=== PATIENT | male | born 1950 | race Caucasian/White ===

== ENCOUNTER 2017-10-13 12:55 | Day surgery (SDC) | payer BC ==
[2017-10-13] MEDS ORDERED: PROPOFOL 20 ML (14:31)
[2017-10-13] MEDS ORDERED: FENTAnyl 50 MCG/ML VIAL (14:31)
== END 2017-10-13 16:18 | disposition home or self-care (01) ==
LOC: GIL 12:55
DX: K29.50 Unspecified chronic gastritis without bleeding (principal); I85.00 Esophageal varices without bleeding; K22.10 Ulcer of esophagus without bleeding; K76.6 Portal hypertension; K31.89 Other diseases of stomach and duodenum; J45.909 Unspecified asthma, uncomplicated; I10 Essential (primary) hypertension; Z85.038 Personal history of other malignant neoplasm of large intestine; Z87.891 Personal history of nicotine dependence
CPT/HCPCS: 43239; 88305; 88312

== ENCOUNTER 2017-10-20 10:58 | Outpatient (CLI) | payer BC | END 2017-10-20 15:56 | disposition home or self-care (01) | LOC: HPC 10:58 | DX: C18.9 Malignant neoplasm of colon, unspecified (principal); K62.5 Hemorrhage of anus and rectum; B19.20 Unspecified viral hepatitis C without hepatic coma; I10 Essential (primary) hypertension; J45.909 Unspecified asthma, uncomplicated; M19.90 Unspecified osteoarthritis, unspecified site; Z72.89 Other problems related to lifestyle; I87.2 Venous insufficiency (chronic) (peripheral); I34.0 Nonrheumatic mitral (valve) insufficiency; I45.10 Unspecified right bundle-branch block; I36.1 Nonrheumatic tricuspid (valve) insufficiency; Q53.9 Undescended testicle, unspecified; Z87.891 Personal history of nicotine dependence; Z88.0 Allergy status to penicillin; Z88.2 Allergy status to sulfonamides | CPT/HCPCS: Z7500 ==

== ENCOUNTER 2017-11-26 03:16 | Emergency (ER) | payer BC ==
[2017-11-26] MEDS: LIDOCAINE 1% (MDV) 20 ML INJ SC (06:30)
== END 2017-11-26 08:11 | disposition home or self-care (01) ==
LOC: FTE 03:16
DX: S91.201A Unspecified open wound of right great toe with damage to nail, initial encounter (principal); J45.909 Unspecified asthma, uncomplicated; I10 Essential (primary) hypertension; W01.0XXA Fall on same level from slipping, tripping and stumbling without subsequent striking against object, initial encounter; Y92.9 Unspecified place or not applicable; Z87.891 Personal history of nicotine dependence
CPT/HCPCS: 11730; 99283-25

== ENCOUNTER 2018-01-21 08:19 | Inpatient (IN) | payer BC ==
[2018-01-21] MEDS: LACTATED RINGER'S 1,000 ML IV* (06:00)
[~2018-01-21 08:19] MED LIST: ONDANSETRON 4 MG INJ; ROCURONIUM 50 MG INJ; hydrALAzine 20 MG INJ
[2018-01-21] MEDS ORDERED: FENTAnyl 50 MCG/ML VIAL (10:53)
[2018-01-21] MEDS ORDERED: MIDAZOLAM 1 MG/ML 2 ML INJ (10:54)
[2018-01-21] MEDS ORDERED: LIDOCAINE 2% (SDV) 5 ML INJ (11:21)
[2018-01-21] MEDS ORDERED: ROCURONIUM 50 MG INJ (11:21)
[2018-01-21] MEDS ORDERED: SUCCINYLCHOLINE CHLORIDE 100 MG/5 ML SYG IV (11:21)
[2018-01-21] MEDS ORDERED: PROPOFOL 20 ML (11:21)
[2018-01-21] MEDS ORDERED: CIPROFLOXACIN 400MG/D5W 200 ML (11:41)
[2018-01-21] MEDS ORDERED: metroNIDAZOLE 500 MG/NS (PMX) 100 ML IVPB (11:41)
[2018-01-21] MEDS ORDERED: METOCLOPRAMIDE 10 MG INJ (11:44)
[2018-01-21] MEDS ORDERED: DEXAMETHASONE 4 MG/ML 1 ML INJ (11:45)
[2018-01-21 12:30] LABS: IMMEDIATE SPIN CROSSMATCH 1 2
[2018-01-21] MEDS ORDERED: HYDROmorphONE 2 MG/ML SYG (14:37)
[2018-01-21] MEDS: metroNIDAZOLE 500 MG/NS (PMX) 100 ML IVPB ×2 (14:45→23:49)
[2018-01-21] MEDS ORDERED: SUGAMMADEX SODIUM 200 MG/2 ML VIAL IV ×3 (16:21→18:57)
[2018-01-21] MEDS ORDERED: NALOXONE (0.4 MG/ML) INJ IV (16:30)
[2018-01-21] MEDS ORDERED: KETOROLAC 15 MG INJ IV (16:30)
[2018-01-21] MEDS ORDERED: ONDANSETRON 4 MG INJ IV ×2 (16:30→17:00)
[2018-01-21 16:51] LABS: ADD MAN DIFF? NO
[2018-01-21 16:52] LABS: WHITE BLOOD COUNT 6.3 10^3/ul (4.8-10.8)
[2018-01-21 16:52] LABS: ABNORMAL IP MESSAGE 1; BASOPHILS % 0.3 % (0.0-2.0); EOSINOPHILS % 0.2 % (0.0-7.0); HEMATOCRIT 29.3 % (42.0-52.0); HEMOGLOBIN 9.5 g/dl (14.0-18.0); LYMPHOCYTES # 0.6 10^3/ul (0.8-2.9); LYMPHOCYTES % 9.2 % (15.0-51.0); MEAN CORPUSCULAR HEMOGLOBIN 21.9 pg (29.0-33.0); MEAN CORPUSCULAR HGB CONC 32.4 g/dl (32.0-37.0); MEAN CORPUSCULAR VOLUME 67.5 fl (82.0-101.0); MEAN PLATELET VOLUME 8.7 fl (7.4-10.4); MONOCYTE # 0.3 10^3/ul (0.3-0.9); NEUTROPHIL # 5.4 10^3/ul (1.6-7.5); PLATELET COUNT 196 10^3/UL (140-415); POSITIVE DIFF @See below; RED BLOOD COUNT 4.34 10^6/ul (4.70-6.10); RED CELL DISTRIBUTION WIDTH 19.9 % (11.5-14.5)
[2018-01-21 16:58] LABS: HOLD TRANSMISSIONS 1
[2018-01-21] MEDS ORDERED: IPRATROPIUM (NEB) 0.5 MG/2.5 ML AMP HHN (17:00)
[2018-01-21] MEDS ORDERED: hydrALAzine 20 MG INJ IV (17:00)
[2018-01-21] MEDS ORDERED: HYDROmorphONE (0.2 MG/ML) 10ML SYG IV ×2 (17:00)
[2018-01-21] MEDS ORDERED: METOCLOPRAMIDE 10 MG INJ IV (17:00)
[2018-01-21] MEDS ORDERED: DIPHENHYDRAMINE 50 MG INJ IV (17:00)
[2018-01-21] MEDS ORDERED: LABETALOL HCL 20MG INJ IV (17:00)
[2018-01-21] MEDS ORDERED: FENTAnyl 50 MCG/ML VIAL IV ×2 (17:00)
[2018-01-21] MEDS: HYDROmorphONE 0.2 MG/ML PCA IV (17:16)
[2018-01-21 17:22] LABS: PARTIAL THROMBOPLASTIN TIME 38.3 Sec (25.0-35.0)
[2018-01-21] MEDS: D5W-0.45 NACL + KCL 20 MEQ 1,000 ML IV (17:31)
[2018-01-21 17:34] LABS: ANION GAP 14 (8-16); CARBON DIOXIDE 22 mmol/L (21-31); CHLORIDE 107 mmol/L (97-110); GLUCOSE 136 mg/dl (70-220); SODIUM 139 mmol/L (135-144)
[2018-01-21 17:35] LABS: BLOOD UREA NITROGEN 8 mg/dl (7-20); CALCIUM 9.3 mg/dl (8.4-10.2); CREATININE 0.64 mg/dl (0.61-1.24); POTASSIUM 3.6 mmol/L (3.5-5.1)
[2018-01-21] MEDS: CIPROFLOXACIN 400MG/D5W 200 ML IVPB (21:59)
[2018-01-22] MEDS: metroNIDAZOLE 500 MG/NS (PMX) 100 ML IVPB ×2 (05:43→13:32)
[2018-01-22] MEDS: PANTOPRAZOLE 40 MG INJ IV (05:43)
[2018-01-22] MEDS: D5W-0.45 NACL + KCL 20 MEQ 1,000 ML IV ×2 (05:49→10:09)
[2018-01-22 08:32] LABS: ADD MAN DIFF? NO
[2018-01-22 08:47] LABS: BASOPHILS % 0.2 % (0.0-2.0); EOSINOPHILS % 0.2 % (0.0-7.0); HEMATOCRIT 26.6 % (42.0-52.0); HEMOGLOBIN 8.5 g/dl (14.0-18.0); LYMPHOCYTES % 17.8 % (15.0-51.0); MEAN CORPUSCULAR HEMOGLOBIN 21.5 pg (29.0-33.0); MEAN CORPUSCULAR VOLUME 67.2 fl (82.0-101.0); MEAN PLATELET VOLUME 9.6 fl (7.4-10.4); MONOCYTE # 0.5 10^3/ul (0.3-0.9); MONOCYTES % 8.6 % (0.0-11.0); NEUTROPHIL # 3.9 10^3/ul (1.6-7.5); PLATELET COUNT 185 10^3/UL (140-415); RED BLOOD COUNT 3.96 10^6/ul (4.70-6.10); RED CELL DISTRIBUTION WIDTH 19.4 % (11.5-14.5)
[2018-01-22 08:47] LABS: WHITE BLOOD COUNT 5.4 10^3/ul (4.8-10.8)
[2018-01-22] MEDS: ENOXAPARIN 40 MG/0.4 ML SYG SC (08:51)
[2018-01-22 08:54] LABS: ALANINE AMINOTRANSFERASE 30 IU/L (13-69); ALBUMIN 2.8 g/dl (3.3-4.9); ALBUMIN/GLOBULIN RATIO 0.84; ALKALINE PHOSPHATASE 79 IU/L (42-121); ANION GAP 14 (8-16); ASPARTATE AMINO TRANSFERASE 39 IU/L (15-46); BILIRUBIN,INDIRECT 0.3 mg/dl (0-1.1); BILIRUBIN,TOTAL 0.3 mg/dl (0.2-1.3); BLOOD UREA NITROGEN 6 mg/dl (7-20); CALCIUM 8.5 mg/dl (8.4-10.2); CARBON DIOXIDE 24 mmol/L (21-31); CHLORIDE 108 mmol/L (97-110); CREATININE 0.58 mg/dl (0.61-1.24); GLUCOSE 103 mg/dl (70-220); POTASSIUM 4.1 mmol/L (3.5-5.1); SODIUM 142 mmol/L (135-144); TOTAL PROTEIN 6.1 g/dl (6.1-8.1)
[2018-01-22 08:56] LABS: INR 1.22; PROTIME 15.6 Sec (11.9-14.9); PT RATIO 1.2
[2018-01-22 08:57] LABS: PARTIAL THROMBOPLASTIN TIME 33.7 Sec (25.0-35.0)
[2018-01-22 09:21] LABS: IRON 25 ug/dl (35-150)
[2018-01-22 09:30] LABS: % IRON SATURATION 8 % SAT (22-52); TOTAL IRON BINDING CAPACITY 309 ug/dl (241-421)
[2018-01-22 09:32] LABS: FERRITIN 8.2 ng/ml (11.1-264.0)
[2018-01-22] MEDS: CIPROFLOXACIN 400MG/D5W 200 ML IVPB (10:55)
[2018-01-22] MEDS: FERROUS SULFATE (EC) 325 MG TAB PO (20:36)
[2018-01-23] MEDS: HYDROmorphONE 0.2 MG/ML PCA IV (00:38)
[2018-01-23] MEDS: PANTOPRAZOLE 40 MG INJ IV (05:31)
[2018-01-23] MEDS: D5W-0.45 NACL + KCL 20 MEQ 1,000 ML IV (05:33)
[2018-01-23] MEDS: ENOXAPARIN 40 MG/0.4 ML SYG SC (06:10)
[2018-01-23 08:53] LABS: ADD MAN DIFF? NO
[2018-01-23 09:06] LABS: BASOPHILS % 0.4 % (0.0-2.0); EOSINOPHILS # 0.1 10^3/ul (0.0-0.5); HEMATOCRIT 27.2 % (42.0-52.0); HEMOGLOBIN 8.6 g/dl (14.0-18.0); LYMPHOCYTES # 0.9 10^3/ul (0.8-2.9); LYMPHOCYTES % 19.3 % (15.0-51.0); MEAN CORPUSCULAR HEMOGLOBIN 21.3 pg (29.0-33.0); MEAN CORPUSCULAR HGB CONC 31.6 g/dl (32.0-37.0); MEAN CORPUSCULAR VOLUME 67.3 fl (82.0-101.0); MEAN PLATELET VOLUME 9.8 fl (7.4-10.4); MONOCYTE # 0.4 10^3/ul (0.3-0.9); MONOCYTES % 9.1 % (0.0-11.0); NEUTROPHIL # 3.3 10^3/ul (1.6-7.5); NEUTROPHILS % 69.2 % (39.0-77.0); PLATELET COUNT 171 10^3/UL (140-415); RED BLOOD COUNT 4.04 10^6/ul (4.70-6.10); RED CELL DISTRIBUTION WIDTH 19.8 % (11.5-14.5)
[2018-01-23 09:06] LABS: WHITE BLOOD COUNT 4.8 10^3/ul (4.8-10.8)
[2018-01-23 09:23] LABS: CALCIUM 8.3 mg/dl (8.4-10.2)
[2018-01-23 09:23] LABS: MAGNESIUM 1.7 mg/dl (1.7-2.5); PHOSPHORUS 2.7 mg/dl (2.5-4.9); PROTIME 15.4 Sec (11.9-14.9); PT RATIO 1.2
[2018-01-23 09:24] LABS: PARTIAL THROMBOPLASTIN TIME 38.4 Sec (25.0-35.0)
[2018-01-23 09:27] LABS: ALANINE AMINOTRANSFERASE 28 IU/L (13-69); ALBUMIN 2.7 g/dl (3.3-4.9); ALBUMIN/GLOBULIN RATIO 0.81; ALKALINE PHOSPHATASE 85 IU/L (42-121); ANION GAP 14 (8-16); ASPARTATE AMINO TRANSFERASE 38 IU/L (15-46); BILIRUBIN,INDIRECT 0.2 mg/dl (0-1.1); BILIRUBIN,TOTAL 0.2 mg/dl (0.2-1.3); BLOOD UREA NITROGEN 4 mg/dl (7-20); CALCIUM 8.1 mg/dl (8.4-10.2); CARBON DIOXIDE 23 mmol/L (21-31); CHLORIDE 108 mmol/L (97-110); GLUCOSE 101 mg/dl (70-220); POTASSIUM 3.8 mmol/L (3.5-5.1); SODIUM 141 mmol/L (135-144)
[2018-01-23 09:31] LABS: B-TYPE NATRIURETIC PEPTIDE 521 PG/ML (0-125)
[2018-01-23] MEDS: oxyCODONE 5 MG TAB PO ×2 (13:43→21:08)
[2018-01-23] MEDS: FERROUS SULFATE (EC) 325 MG TAB PO ×2 (13:44→21:08)
[2018-01-23] MEDS: LOSARTAN 50 MG TAB PO (15:10)
[2018-01-23] MEDS: OXYBUTYNIN (XL) 5 MG TAB PO (15:10)
[2018-01-23] MEDS: FUROSEMIDE 40 MG TAB PO (15:11)
[2018-01-23] MEDS: HYDROmorphONE 0.5 MG/0.5 ML SYG IV (23:09)
[2018-01-24] MEDS: PANTOPRAZOLE 40 MG INJ IV (05:55)
[2018-01-24] MEDS: ENOXAPARIN 40 MG/0.4 ML SYG SC (06:19)
[2018-01-24] MEDS ORDERED: NON-FORMULARY/PATIENT OWN MED (Omeprazole* 40 MG) PO (07:30)
[2018-01-24] MEDS: FERROUS SULFATE (EC) 325 MG TAB PO ×2 (08:51→21:18)
[2018-01-24] MEDS: FUROSEMIDE 40 MG TAB PO (08:51)
[2018-01-24] MEDS: LOSARTAN 50 MG TAB PO (08:52)
[2018-01-24] MEDS: OXYBUTYNIN (XL) 5 MG TAB PO (08:52)
[2018-01-24] MEDS: HYDROmorphONE 0.5 MG/0.5 ML SYG IV ×2 (08:54→19:35)
[2018-01-25] MEDS: PANTOPRAZOLE 40 MG INJ IV (06:05)
[2018-01-25] MEDS: ENOXAPARIN 40 MG/0.4 ML SYG SC (06:05)
[2018-01-25] MEDS: HYDROmorphONE 0.5 MG/0.5 ML SYG IV ×2 (08:22→21:32)
[2018-01-25] MEDS: FERROUS SULFATE (EC) 325 MG TAB PO ×2 (08:27→21:35)
[2018-01-25] MEDS: OXYBUTYNIN (XL) 5 MG TAB PO (08:28)
[2018-01-25] MEDS: FUROSEMIDE 40 MG TAB PO (08:28)
[2018-01-25] MEDS: LOSARTAN 50 MG TAB PO (08:29)
[2018-01-26] MEDS: PANTOPRAZOLE 40 MG INJ IV (06:37)
[2018-01-26] MEDS: ENOXAPARIN 40 MG/0.4 ML SYG SC (06:39)
[2018-01-26 08:28] LABS: ADD MAN DIFF? NO
[2018-01-26 08:31] LABS: WHITE BLOOD COUNT 3.9 10^3/ul (4.8-10.8)
[2018-01-26 08:31] LABS: BASOPHILS % 0.3 % (0.0-2.0); EOSINOPHILS # 0.1 10^3/ul (0.0-0.5); EOSINOPHILS % 3.4 % (0.0-7.0); HEMATOCRIT 26.6 % (42.0-52.0); HEMOGLOBIN 8.5 g/dl (14.0-18.0); LYMPHOCYTES % 25.6 % (15.0-51.0); MEAN CORPUSCULAR HEMOGLOBIN 21.6 pg (29.0-33.0); MEAN CORPUSCULAR VOLUME 67.5 fl (82.0-101.0); MEAN PLATELET VOLUME 9.3 fl (7.4-10.4); MONOCYTE # 0.3 10^3/ul (0.3-0.9); MONOCYTES % 8.8 % (0.0-11.0); NEUTROPHIL # 2.4 10^3/ul (1.6-7.5); NEUTROPHILS % 61.4 % (39.0-77.0); PLATELET COUNT 189 10^3/UL (140-415); RED BLOOD COUNT 3.94 10^6/ul (4.70-6.10)
[2018-01-26 08:57] LABS: ANION GAP 12 (8-16); BLOOD UREA NITROGEN 9 mg/dl (7-20); CALCIUM 8.7 mg/dl (8.4-10.2); CARBON DIOXIDE 27 mmol/L (21-31); CHLORIDE 105 mmol/L (97-110); CREATININE 0.67 mg/dl (0.61-1.24); GLUCOSE 104 mg/dl (70-220); POTASSIUM 3.8 mmol/L (3.5-5.1); SODIUM 140 mmol/L (135-144)
[2018-01-26] MEDS: OXYBUTYNIN (XL) 5 MG TAB PO (09:59)
[2018-01-26] MEDS: LOSARTAN 50 MG TAB PO (09:59)
[2018-01-26] MEDS: FUROSEMIDE 40 MG TAB PO (09:59)
[2018-01-26] MEDS: FERROUS SULFATE (EC) 325 MG TAB PO ×2 (09:59→20:59)
[2018-01-26] MEDS: HYDROmorphONE 0.5 MG/0.5 ML SYG IV ×2 (10:12→21:14)
[2018-01-26] MEDS: DOCOSANOL 2 GM CREAM TOP ×4 (15:13→21:00)
[2018-01-26] MEDS: METOPROLOL 25 MG TAB PO (21:00)
[2018-01-27] MEDS: HYDROmorphONE 0.5 MG/0.5 ML SYG IV ×4 (01:22→19:39)
[2018-01-27] MEDS: PANTOPRAZOLE 40 MG INJ IV (05:01)
[2018-01-27] MEDS: oxyCODONE 5 MG TAB PO ×2 (06:18→16:41)
[2018-01-27] MEDS: ENOXAPARIN 40 MG/0.4 ML SYG SC (06:24)
[2018-01-27] MEDS: DOCOSANOL 2 GM CREAM TOP ×5 (08:34→18:00)
[2018-01-27] MEDS: FUROSEMIDE 40 MG TAB PO (08:34)
[2018-01-27] MEDS: FERROUS SULFATE (EC) 325 MG TAB PO ×2 (08:34→20:05)
[2018-01-27] MEDS: METOPROLOL 25 MG TAB PO ×2 (08:34→20:06)
[2018-01-27] MEDS: OXYBUTYNIN (XL) 5 MG TAB PO (08:35)
[2018-01-27] MEDS: AMIODARONE 200 MG TAB PO (20:06)
== END 2018-01-27 20:40 | disposition home health service (06) | DRG 331 ==
LOC: REC 08:19 → MS4 18:11
PROC: 0DTN4ZZ Resection of Sigmoid Colon, Percutaneous Endoscopic Approach (ICD-10-PCS; principal; 2018-01-21 08:00)
PROC: 0DBP4ZZ Excision of Rectum, Percutaneous Endoscopic Approach (ICD-10-PCS; 2018-01-21 08:00)
PROC: 0FB14ZX Excision of Right Lobe Liver, Percutaneous Endoscopic Approach, Diagnostic (ICD-10-PCS; 2018-01-21 08:00)
PROC: 30233N1 Transfusion of Nonautologous Red Blood Cells into Peripheral Vein, Percutaneous Approach (ICD-10-PCS; 2018-01-21 08:00)
DX: C18.7 Malignant neoplasm of sigmoid colon (principal); B19.20 Unspecified viral hepatitis C without hepatic coma; J45.909 Unspecified asthma, uncomplicated; I10 Essential (primary) hypertension; Z87.891 Personal history of nicotine dependence; I45.10 Unspecified right bundle-branch block; I08.1 Rheumatic disorders of both mitral and tricuspid valves; I73.9 Peripheral vascular disease, unspecified; K74.60 Unspecified cirrhosis of liver; D50.9 Iron deficiency anemia, unspecified; E78.5 Hyperlipidemia, unspecified; I49.1 Atrial premature depolarization
CPT/HCPCS: 36430; 71045; 80048; 80053; 82310; 82728; 83540; 83735; 83880; 84100; 84443; 85025; 85610; 85730; 86850; 86900; 86901; 86920; 87086; 88307; 88309; 88313; 88331; 93005; 97110; 97116; 97162; 97530